=== PATIENT | female | born 1995 | race Caucasian/White ===

== ENCOUNTER 2018-04-17 15:15 | Observation (INO) ==
[2018-04-17 17:35] LABS: Hemoglobin [HGB] 12.2 g/dL (12.0-16.0); MEAN CORPUSCULAR HEMOGLOBIN 31.9 PG (27-31); MEAN CORPUSCULAR HGB CONC 33.9 g/dL (33-37); MEAN CORPUSCULAR VOLUME 94.2 FL (81-99); MEAN PLATELET VOLUME 10.1 FL (7.4-12.2); RED BLOOD COUNT 3.82 10^6/uL (4.20-5.40)
[2018-04-17 17:48] LABS: BLOOD UREA NITROGEN 8 mg/dL (7-22); Uric Acid 3.6 mg/dl (2.5-6.2)
[2018-04-17] MEDS: BETAMET ACET/BETAMET NA PH 6 MG/1 ML - 5 ML IM SCH (18:21)
[2018-04-18 05:29] LABS: Hematocrit [HCT] 37.7 % (37.0-47.0); Hemoglobin [HGB] 12.6 g/dL (12.0-16.0); MEAN CORPUSCULAR HEMOGLOBIN 31.5 PG (27-31); MEAN CORPUSCULAR HGB CONC 33.4 g/dL (33-37); MEAN CORPUSCULAR VOLUME 94.3 FL (81-99); MEAN PLATELET VOLUME 10.5 FL (7.4-12.2)
[2018-04-18] MEDS ORDERED: LEVOTHYROXINE 50 MCG TABLET PO SCH (05:30)
[2018-04-18 05:41] LABS: BLOOD UREA NITROGEN 7 mg/dL (7-22); SERUM ALBUMIN 3.3 g/dL (3.5-4.8); Uric Acid 3.4 mg/dl (2.5-6.2)
--- NOTE | 2018-04-18 08:52 | OB.PROGRES ---
Date of Service: 04/18/18 Time of Service: 08:46 Interval History: Pt reports that she is feeling ok today, still having some RUQ pressure/mild discomfort. Denies WHITE, vision changes, increased edema. No nausea or vomiting since yesterday morning early. Baby is moving well. No leakage of fluid, no vag bleeding. Having a few contractions this morning, but not feeling them. Objective - Cervical Exam Cervical Exam: not checked [place]: irregular Heart Rate: 125, moderate variability, no decels noted. Heart Rate Interpretation Category: Category I - Labs CBC and BMP: 04/18/18 04:34 04/18/18 04:34 - Vital Signs Last Taken Vital Signs: Vital Signs - Last Taken Temperature 97.5 F 04/18/18 07:20 Pulse Rate 70 04/18/18 07:20 Respiratory Rate 18 04/18/18 07:20 Blood Pressure 112/77 04/18/18 08:15 Pulse Ox 98 04/18/18 07:20 Assessment and Plan - Patient Problems (1) Elevated liver enzymes Current Visit: Yes Status: Acute Code(s): R74.8 - Abnormal levels of other serum enzymes (2) Viral syndrome Current Visit: Yes Status: Acute Code(s): B34.9 - Viral infection, unspecified - Assessment / Plan Additional Assessment/Plan Details: -discussed case with Dr. Neri last noc and again this morning. Clinically, she is doing well. Labs are improved. She received first dose of celestone last noc and will get another dose tonight. Will also complete 24 hour urine for protein tonight. After that, if she remains stable, will d/c home. -continue routine antepartum testing for IUGR/intermittent oligohydramnios.
[2018-04-18] MEDS: BETAMET ACET/BETAMET NA PH 6 MG/1 ML - 5 ML IM SCH (18:24)
[2018-04-18 18:59] LABS: 24 HOUR URINE TOTAL VOLUME 2425 ML
[2018-04-19 13:20] LABS: HEP B CORE IGM ANTIBODY Negative (Negative); HEPATITIS B SURFACE AG Negative (Negative)
[2018-04-20 10:59] LABS: HEPATITIS A IGM Negative (Negative)
--- NOTE | 2018-04-26 22:13 | OB.PROGRES ---
Date of Service: 04/18/18 Time of Service: 17:30 Interval History: Has had a good day. No WHITE, states that RUQ tenderness/pressure has improved quite a bit. No vision changes. Baby is moving well. Denies contractions, cramping, vag bleeding or gushes of fluid. Would like to go home and rest. Objective - Cervical Exam [place]: none Heart Rate Interpretation Category: Category I - Labs CBC and BMP: 04/18/18 04:34 04/18/18 04:34 - Vital Signs Last Taken Vital Signs: Vital Signs - Last Taken Temperature 97.5 F 04/18/18 11:41 Pulse Rate 86 04/18/18 11:41 Respiratory Rate 16 04/18/18 15:30 Blood Pressure 102/73 04/18/18 11:41 Pulse Ox 96 04/18/18 15:30 Assessment and Plan - Patient Problems (1) Elevated liver enzymes Status: Acute Code(s): R74.8 - Abnormal levels of other serum enzymes (2) Viral syndrome Status: Acute Code(s): B34.9 - Viral infection, unspecified - Assessment / Plan Additional Assessment/Plan Details: -pt has had a good day and essentially asymptomatic at this time. Will get second dose of celestone shortly, complete 24 hour urine for protein in about 30 minutes and then we will discharge her home. She will come back on Saturday (3 days) for repeat labs, NST and u/s. Strict precautions until then. - Time/Visit Time Spent With Patient: 15-25 Minutes
== END 2018-04-18 19:08 | disposition home or self-care (01) ==
LOC: OBIP → EDSTATUS 15:15
PROVIDERS: ADMIT Family Medicine; ATTEND Family Medicine

== ENCOUNTER 2018-04-21 10:52 | Observation (INO) ==
[2018-04-21 11:59] LABS: Hematocrit [HCT] 37.2 % (37.0-47.0); Hemoglobin [HGB] 12.6 g/dL (12.0-16.0); MEAN CORPUSCULAR HEMOGLOBIN 32.1 PG (27-31); MEAN CORPUSCULAR HGB CONC 33.9 g/dL (33-37); MEAN CORPUSCULAR VOLUME 94.7 FL (81-99); MEAN PLATELET VOLUME 10.2 FL (7.4-12.2); RED BLOOD COUNT 3.93 10^6/uL (4.20-5.40)
[2018-04-21 12:06] LABS: BLOOD UREA NITROGEN 11 mg/dL (7-22); SERUM ALBUMIN 3.4 g/dL (3.5-4.8); Uric Acid 4.3 mg/dl (2.5-6.2)
[2018-04-21] MEDS ORDERED: LIDOCAINE W/ SODIUM BICARB 0.5 ML SYR SUBD PRN (13:32)
[2018-04-21] MEDS ORDERED: Ondansetron ODT Tab 4 MG TAB PO PRN (13:32)
[2018-04-21] MEDS ORDERED: CALCIUM CARBONATE 500 MG (TUMS) CHEWABLE TABLET PO PRN (13:32)
[2018-04-21] MEDS ORDERED: ONDANSETRON 4 MG/2 ML VIAL IVP PRN (13:32)
[2018-04-21 14:40] LABS: RBC,URINE 0-1 /hpf; RENAL EPITHELIAL CELLS,URINE RARE; SQUAMOUS EPITHELIAL CELL,UR MANY
[2018-04-21 14:41] LABS: BACTERIA,URINE RARE
--- NOTE | 2018-04-21 16:33 | DI ---
US OB , Limited 04/21/2018 1:32 PM History: [facility] [place] ^[id number] ^Elevated liver enzymes ^SUNNY, growth and cord dopplers Comparison: Obstetric ultrasound from 02/21/2018. Technique: Targeted hanna scale and doppler ultrasound of the gravid uterus was performed. Cervix measures 2.4 cm (may have been underestimated due to position). SUNNY (total) measures 12.4 cm. Presentation: Vertex. Biometry: Biparietal diameter 75 mm corresponds to 30 weeks 1 days. Head circumference 283 mm corresponds to 31 weeks 1 days. Abdominal circumference 266 mm corresponds to 30 weeks 6 days. Femur length 60 mm corresponds to 31 weeks 2 days. Estimated weight is 1653 g which is 2 % for age by Hadlock criteria. HC/AC is 1.06 which is within normal limits. Cardiac Activity: 146 BPM Gestational Age (based on LMP or early OB scan): 34 w 1 d; ZAINA: 06/01/2018 Composite Sonographic Age: 30 w 6 d; ZAINA: 06/24/2018 Cord doppler evaluation was performed and demonstrates normal waveforms with preserved diastolic flow . Measurements are as follows, S/D (peak systolic/end diastolic): side 2.5 Mid cord 3.1 Placental side 2.9 For gestational age of 34 weeks, S/D 50th percentile is 2.5 and 95th percentile is 3.6. Impression: 1. Single living intrauterine gestation with EGA based on this ultrasound of 30 weeks 6 days with an ZAINA of 06/24/2018. 2. EFW is 1653 g which is 2 % for age by Hadlock criteria. HC/AC ratio is normal. 3. Normal cord doppler analysis. 4. SUNNY is 12.4 cm.
[2018-04-21] MEDS ORDERED: CALCIUM GLUCONATE 100 MG/1 ML - 10 ML IVP PRN (18:22)
[2018-04-21] MEDS ORDERED: Magnesium Sulfate 4gm (Premix) 4 GM/100 ML BAG IV ONE (18:23)
[2018-04-21] MEDS ORDERED: Magnesium Sulfate (Premix) 20 GM/500 ML BAG IV ONE (18:25)
[2018-04-21] MEDS: MAGNESIUM SULFATE IV ONE (18:39)
--- NOTE | 2018-04-21 18:41 | OB.PROGRES ---
Date of Service: 04/21/18 Time of Service: 18:10 Interval History: Pt seen at 1315 today and again currently. She is a 22 yo at 34 1/7 week by early u/s. She presented to labor and delivery today for routine monitoring. Of note, she was hospitalized last week for RUQ pain initially that changed to upper abd pressure on , Apr 17. CMP and CBC were obtained, which showed slightly low platelets at 138,000, elevated AST and ALT, and elevated LDH. Uric acid was normal. Creatinine was normal at 0.4. RUQ u/s showed normal appearing liver, normal appearing gallbladder, mild splenomegaly (13.9 cm). Labs were rechecked that night, and actually improved with lower AST and ALT, LDH was down to 885 (was 1300). Pt was observed overnoc and labs were again repeated in the morning. This showed continued downward trend of liver enzymes. I spoke with ALEC Hector at [facility] in [place], who agreed with watchful waiting and agreed with a course of celestone. The pt was feeling better the next morning, with just very mild upper abd 'pressure', but no pain. NST were reactive, occasional uterine irritability was noted. I spoke with ALEC Hector at [facility] in [place], and we concluded that the pt possibly had a viral syndrome vs quickly passed gallstone. Plan was to repeat labs and NST 04/21 (today). The pt presented today as planned. She reports occasional RUQ twinges, still some pressure there. Denies WHITE, increased swelling or vision changes. Denies feeling any contractions. Baby has been moving around normally. Her labs showed a slight uptick of her AST, ALT was stable at 106, platelets had improved some to 175,000. LDH was again elevated in the 800s. Her 24 hour urine protein from last week was 315 mg. H&H were stable at 12.6. I spoke with MFM access liaison, Dr. Maki, who suggested u/s today to evaluate growth, SUNNY and cord dopplers. EFW was 1658, SUNNY was 12 and cord dopplers were reported as normal. Baby was vertex. Objective - Cervical Exam Cervical Exam: not examined. [place]: uterine irritability Heart Rate: 135-140, + accels, random variable decelerations noted Heart Rate Interpretation Category: Category II - Labs CBC and BMP: 04/21/18 11:55 04/21/18 11:55 - Vital Signs Last Taken Vital Signs: Vital Signs - Last Taken Temperature 97.6 F 04/21/18 17:51 Pulse Rate 74 04/21/18 17:51 Respiratory Rate 18 04/21/18 17:52 Blood Pressure 133/65 04/21/18 17:51 Pulse Ox 100 04/21/18 17:51 Assessment and Plan - Patient Problems (1) Elevated liver enzymes Current Visit: No Status: Acute Code(s): R74.8 - Abnormal levels of other serum enzymes (2) IUGR (intrauterine growth restriction) Current Visit: No Status: Acute - Assessment / Plan Additional Assessment/Plan Details: -plan to transport pt to [place] for continued observation and care. -received a course of celestone last week. -will give 6 gm bolus of mag sulfate today, followed by maintenance dose of 2 gm/hour. -updated pt on plan, she agrees. -f/u: upon return to [place] from [place].
[2018-04-21] MEDS ORDERED: Lactated Ringers 1,000 ML PRIMARY IV SCH ×2 (18:45→22:00)
[2018-04-21] MEDS: Magnesium Sulfate (Premix) 20 GM/500 ML BAG IV SCH (19:10)
[2018-04-21 20:08] LABS: Hematocrit [HCT] 38.3 % (37.0-47.0); Hemoglobin [HGB] 13.2 g/dL (12.0-16.0); MEAN CORPUSCULAR HEMOGLOBIN 32.1 PG (27-31); MEAN CORPUSCULAR HGB CONC 34.5 g/dL (33-37); MEAN CORPUSCULAR VOLUME 93.2 FL (81-99); MEAN PLATELET VOLUME 10.2 FL (7.4-12.2); RED BLOOD COUNT 4.11 10^6/uL (4.20-5.40)
[2018-04-21 20:29] LABS: BLOOD UREA NITROGEN 9 mg/dL (7-22); SERUM ALBUMIN 3.5 g/dL (3.5-4.8); Uric Acid 4.1 mg/dl (2.5-6.2)
[2018-04-21] MEDS ORDERED: Zolpidem Tab 5 MG TAB PO PRN (21:00)
[2018-04-21 23:26] LABS: BILIRUBIN,URINE NEGATIVE (NEG); CLARITY,URINE CLEAR (CLEAR); COLOR,URINE YELLOW (Y); GLUCOSE, URINE (UA) NEGATIVE (NEG); OCCULT BLOOD,URINE MODERATE (NEG); PH,URINE 5.5 (5.0-8.5); PROTEIN,URINE NEGATIVE (NEG); UROBILINOGEN,URINE 0.2 EU/dL (0.2)
[2018-04-21 23:28] LABS: URINE SAMPLE TYPE CLEAN CATCH URINE; URINE SPECIFIC GRAVITY - MAN 1.024
[2018-04-21 23:31] LABS: RBC,URINE 15-25 /hpf; SQUAMOUS EPITHELIAL CELL,UR RARE
--- NOTE | 2018-04-21 23:32 | OB.PROGRES ---
Date of Service: 04/21/18 Time of Service: 23:25 Interval History: I have discussed the pt with the L&D nurse several times tonight. Pt is now nauseated and c/o 4/10 RUQ pain that is constant. She continues to deny WHITE, vision changes or other concerns. She had a 6 gm bolus of mag sulfate around 1830 tonight and is currently on 2.5 mg/hr. This was increased from 2 gm/hr secondary to q6min contractions that started around 2100. [employer] has been contacted, but is currently unable to fly to [place] secondary to icing concerns. They continue to check status every hour. The pt had labs drawn at 2000 tonight. They show a mild hemoconcentration to 13.2. Her AST and ALT have trended upwards. Bilirubin went from 0.3 to 0.5. Platelets have gone from 171,000 to 159,000. Her LDH has increased from 818 to <850. I called [facility] high risk labor and delivery unit and spoke with the M condenser tube tender, Dr. Sánchez Elkins--we reviewed labs and the pt's current clinical status. Objective - Cervical Exam Cervical Exam: closed/thick/high/posterior per RN. [place]: every 7-8 minutes, fairly regular. Palpating mild. Heart Rate: category 1 strip, moderate variability. - Labs CBC and BMP: 04/21/18 20:05 04/21/18 20:05 - Vital Signs Last Taken Vital Signs: Vital Signs - Last Taken Temperature 98.0 F 04/21/18 22:00 Pulse Rate 98 04/21/18 22:56 Respiratory Rate 14 04/21/18 22:56 Blood Pressure 136/77 04/21/18 22:56 Pulse Ox 96 04/21/18 22:56 Assessment and Plan - Patient Problems (1) Elevated liver enzymes Current Visit: No Status: Acute Code(s): R74.8 - Abnormal levels of other serum enzymes (2) IUGR (intrauterine growth restriction) Current Visit: No Status: Acute - Assessment / Plan Additional Assessment/Plan Details: -Per Dr. Elknis, we will give dexamethasone 4 mg now and then 2 mg IV q4h. -GBS pending. -will repeat gestational HTN panel at 0600 tomorrow. -continue mag sulfate at 2.5 gm/hour. -will discuss further with Dr. Brittni romero if she decompensates at all. -continue very close observation. Hopefully we can get her transferred to higher level of care later [place] or first thing in the am.
[2018-04-22] MEDS: Magnesium Sulfate (Premix) 20 GM/500 ML BAG IV SCH (04:04)
[2018-04-22 06:00] LABS: Hematocrit [HCT] 37.9 % (37.0-47.0); Hemoglobin [HGB] 12.6 g/dL (12.0-16.0); MEAN CORPUSCULAR HGB CONC 33.2 g/dL (33-37); MEAN CORPUSCULAR VOLUME 93.1 FL (81-99); RED BLOOD COUNT 4.07 10^6/uL (4.20-5.40)
[2018-04-22 06:19] LABS: BLOOD UREA NITROGEN 7 mg/dL (7-22); SERUM ALBUMIN 3.2 g/dL (3.5-4.8); Uric Acid 4.5 mg/dl (2.5-6.2)
[2018-04-22] MEDS: MAGNESIUM SULFATE IV ONE (06:58)
[2018-04-22] MEDS ORDERED: Acet/Butalb/Caff 325-50-40 1 TAB TABLET PO ONE (07:37)
[2018-04-22 08:40] LABS: BILIRUBIN,URINE NEGATIVE (NEG); CLARITY,URINE Slightly Cloudy (CLEAR); COLOR,URINE ORANGE; GLUCOSE, URINE (UA) NEGATIVE (NEG); OCCULT BLOOD,URINE LARGE (NEG); PROTEIN,URINE NEGATIVE (NEG); UROBILINOGEN,URINE 0.2 mg/dL (0.2)
[2018-04-22 08:52] LABS: RBC,URINE 25-40 /hpf; SQUAMOUS EPITHELIAL CELL,UR RARE; URINE SAMPLE TYPE VOIDED SPECIMEN
[2018-04-22] MEDS ORDERED: Prenatal Multivitamin Tab 1 TAB TAB PO SCH (09:00)
[2018-04-22] MEDS ORDERED: Acet/Butalb/Caff 325-50-40 1 TAB TABLET PO PRN (09:22)
--- NOTE | 2018-04-22 09:22 | OB.PROGRES ---
Date of Service: 04/22/18 Time of Service: 09:11 Interval History: Pt is a 22 at 34 2/7 weeks today. Pt feeling poorly today--had a WHITE this morning but this was relieved by fioricet. The RUQ pain is better after dexamethasone last noc and scheduled q4h. She is feeling somewhat dizzy and is seeing double if she has both of her eyes open at the same time. No obstetrical complaints--baby is moving around normally, no leakage of fluid, vaginal bleeding or other issues. She received a 6gm magnesium bolus yesterday at 1830, then was on 2 gms/hr. Last noc, she was having regular, mild contractions, so her mag was turned up to 2.5 mg. She is having no contractions today. She received a course of celestone last week--Apr 17 and . GBS is pending. Objective - Cervical Exam Cervical Exam: closed/thick/posterior last noc per RN [place]: currently not fide. Heart Rate: 120, moderate variability. - Labs CBC and BMP: 04/22/18 05:05 04/22/18 05:05 - Vital Signs Last Taken Vital Signs: Vital Signs - Last Taken Temperature 97.2 F 04/22/18 08:00 Pulse Rate 93 04/22/18 08:00 Respiratory Rate 20 04/22/18 08:00 Blood Pressure 118/69 04/22/18 08:00 Pulse Ox 97 04/22/18 08:00 Assessment and Plan - Patient Problems (1) HELLP syndrome (HELLP), third trimester Current Visit: Yes Status: Acute Code(s): O14.23 - HELLP syndrome (HELLP), third trimester (2) Elevated liver enzymes Current Visit: No Status: Acute Code(s): R74.8 - Abnormal levels of other serum enzymes (3) IUGR (intrauterine growth restriction) Current Visit: No Status: Acute - Assessment / Plan Additional Assessment/Plan Details: -pt's labs continue to worsen--discussed again with Dr. Weber in [place]--it sounded like [facility] would be here around 0900 today, but then they called back at 0900 and stated that they were having mechanical issues and wouldn't be able to take off. We did call [facility] from [place], however, they would not be able to take off for at least another 90 minutes. I have arranged for ground transport with [facility] ambulance at this time to get pt to [place] in a timely fashion. I also discussed this with Dr. Weber. -continue dexamethasone q4h until she gets to [place]. -pt, spouse and her father were all updated on the status and the reason behind the delay. Questions were answered.
== END 2018-04-22 09:45 | disposition short-term general hospital (02) ==
LOC: OBIP 10:52 → OBOP 10:52
PROVIDERS: ADMIT Family Medicine; ATTEND Family Medicine